=== PATIENT | female | born 1985 | race Native Hawaiian/Other Pacific Islander ===

== ENCOUNTER 2022-05-12 14:16 | Emergency (ER) | payer OTHER ==
[~2022-05-12] VITALS: Ht 160 cm; Wt 77.1 kg
[2022-05-12] MEDS ORDERED: Z-PAK PO (15:15)
[2022-05-12 15:45] VITALS: BP 112/68; TEMP 97.9
== END 2022-05-12 15:45 | disposition home or self-care (01) ==
LOC: ED 14:16
DX: J06.9 Acute upper respiratory infection, unspecified (principal); H61.21 Impacted cerumen, right ear; F17.210 Nicotine dependence, cigarettes, uncomplicated
CPT/HCPCS: 96372; 99283; J0696; J1100